=== PATIENT | male | born 1990 | race Hispanic/Latino ===

== ENCOUNTER 2017-07-21 22:30 | Emergency (ER) | payer BC ==
[2017-07-21 22:35] VITALS: BP 110/78; PULSE 110; RESP 18; TEMP 97.4; O2SAT 100
[2017-07-21] MEDS ORDERED: Sodium Chloride 0.9% 1,000 ML IV STA ×2 (23:10→23:40)
[2017-07-21 23:25] LABS: BASO % 0.2 % (0.0-2.0); EOS % 0.2 % (0.0-4.0); HEMOGLOBIN 16.8 g/dL (12.0-18.0); LYMPH # 0.4 K/uL (1.0-4.3); LYMPH % 2.9 % (20.0-40.0); MEAN CELL VOLUME 87.9 fl (80.0-94.0); MEAN CORPUSCULAR HEMOGLOBIN 30.9 pg (27.0-31.0); MEAN CORPUSCULAR HGB CONC 35.2 g/dL (33.0-37.0); MEAN PLATELET VOLUME 9.3 fl (7.2-11.7); MONO # 0.5 K/uL (0.0-0.8); NEUT # 11.9 K/uL (1.8-7.0); NEUT % 92.7 % (50.0-75.0); PLATELET COUNT 167 K/uL (130-400); RBC 5.43 Mil/uL (4.40-5.90); RED CELL DISTRIBUTION WIDTH 13.1 % (11.5-14.5); WHITE BLOOD COUNT 12.8 K/uL (4.8-10.8)
[2017-07-21 23:35] LABS: ALB/GLOB RATIO 1.4 (1.0-2.1); ALBUMIN 5.1 g/dL (3.5-5.0); ALT/SGPT 67 U/L (21-72); AST/SGOT 38 U/L (17-59); BLOOD UREA NITROGEN 19 mg/dl (9-20); CALCIUM 9.9 mg/dL (8.4-10.2); GFR AFRICAN-AMERICAN > 60; GFR NON-AFRICAN AMERICAN > 60; LIPASE 35 U/L (23-300)
[2017-07-22 00:30] LABS: BANDS 3 % (0-2); LYMPHOCYTE 2 % (20-50); MONOCYTE 6 % (0-10); NEUTROPHIL 89 % (42-75); TOTAL CELLS COUNTED 100
[2017-07-22 00:31] LABS: PLATELET ESTIMATE NORMAL (NORMAL)
[2017-07-22] MEDS ORDERED: Lactated Ringer's 1,000 ML IV SCH (01:15)
--- NOTE | 2017-07-22 02:15 | ED PDOC ---
HPI: Abdomen Time Seen by Provider: 07/21/17 22:39 Chief Complaint (Nursing): Abdominal Pain Chief Complaint (Provider): Abdominal Pain/Vomiting History Per: Patient History/Exam Limitations: no limitations Onset/Duration Of Symptoms: Hrs (x2) Outside of [place] travel?: No Current Symptoms Are (Timing): Still Present Additional Complaint(s): Kelvin Meadows is a 27 year old male that presents to the ED with a chief complaint of acute nausea and 8 episodes of non-bloody, non-bilious vomiting that he developed 2 hours ago. Patient reports that he also had non- bloody diarrhea, and developed associated abdominal cramps from the vomiting, but denies any fevers, chills, or travel. Past Medical History Reviewed: Historical Data, Nursing Documentation, Vital Signs Vital Signs: Last Vital Signs Temp 97.4 F L 07/21/17 22:33 Pulse 110 H 07/21/17 22:33 Resp 18 07/21/17 22:33 BP 110/78 07/21/17 22:33 Pulse Ox 100 07/22/17 02:22 - Medical History PMH: No Chronic Diseases - Surgical History Surgical History: No Surg Hx - Family History Family History: States: Unknown Family Hx - Social History Current smoker - smoking cessation education provided: No Alcohol: None Drugs: Denies - Home Medications Home Medications: Ambulatory Orders Medication Instructions Recorded Dicyclomine [Bentyl] 20 mg PO Q12 PRN #20 tab 07/22/17 Ondansetron [Zofran Odt] 4 mg PO Q6 PRN #12 odt 07/22/17 - Allergies Allergies/Adverse Reactions: Allergies Allergy/AdvReac Type Severity Reaction Status Date / Time Penicillins Allergy Mild RASH Verified 07/21/17 22:35 Review of Systems ROS Statement: Except As Marked, All Systems Reviewed And Found Negative Gastrointestinal: Positive for: Vomiting, Abdominal Pain (cramps), Diarrhea Physical Exam - Reviewed Nursing Documentation Reviewed: Yes Vital Signs Reviewed: Yes - Physical Exam Appears: Positive for: Non-toxic, Uncomfortable Head Exam: Positive for: ATRAUMATIC, NORMOCEPHALIC Skin: Positive for: Warm, Pallor Eye Exam: Positive for: Normal appearance, EOMI, PERRL ENT: Positive for: Other (tacky mucous membranes). Negative for: Normal ENT Inspection Neck: Positive for: Normal, Supple Cardiovascular/Chest: Positive for: Regular Rate, Rhythm. Negative for: Murmur Respiratory: Positive for: Normal Breath Sounds. Negative for: Wheezing Gastrointestinal/Abdominal: Positive for: Normal Exam, Soft. Negative for: Tenderness Back: Positive for: Normal Inspection. Negative for: L CVA Tenderness, R CVA Tenderness Extremity: Positive for: Normal ROM. Negative for: Deformity, Swelling Neurologic/Psych: Positive for: Alert, Oriented. Negative for: Motor/Sensory Deficits - Laboratory Results Result Diagrams: 07/21/17 23:22 07/21/17 23:22 - ECG O2 Sat by Pulse Oximetry: 100 (RA) Pulse Ox Interpretation: Normal Medical Decision Making Medical Decision Making: Impression: 27 year old male with vomiting and diarrhea Plan: * Urine dip * Urinalysis * Ova and Parasite * Stool culture * Fecal Leukocytes * Bentyl 20 mg PO * Zofran 4 mg IV * Lactated Ringers 1000 mLs at 1000 mLs/hf * NaCl 1000 mLs at 1000 mLs/hr * Reevaluation Scribe Attestation: Documented by Babita Abbott, acting as a scribe for Raoul Feliciano MD. Provider Scribe Attestation: All medical record entries made by the Scribe were at my direction and personally dictated by me. I have reviewed the chart and agree that the record accurately reflects my personal performance of the history, physical exam, medical decision making, and the department course for this patient. I have also personally directed, reviewed, and agree with the discharge instructions and disposition. Disposition - Clinical Impression Clinical Impression: Gastroenteritis - Disposition Disposition: Routine/Home Disposition Time: 02:00 Condition: IMPROVED Prescriptions: Dicyclomine [Bentyl] 20 mg PO Q12 PRN #20 tab PRN Reason: Irritable Bowel Symptoms Ondansetron [Zofran Odt] 4 mg PO Q6 PRN #12 odt PRN Reason: Nausea/Vomiting Instructions: Gastroenteritis (ED) Forms: [facility] ([place])
== END 2017-07-22 03:43 | disposition home or self-care (01) ==
LOC: H.ER 22:30
DX: K52.9 Noninfective gastroenteritis and colitis, unspecified (principal)
CPT/HCPCS: 80053; 83690; 85025; 87045; 87177; 87209; 89055; 96374; 99282; G0328; J2405; J7120